=== PATIENT | female | born 2000 | race Two or more races ===

== ENCOUNTER 2022-09-03 12:23 | Outpatient (REF) | payer MEDICAID, SELFPAY ==
--- NOTE | ~2022-09-03 | XR_ITS ---
EXAMINATION: XR WRIST, LEFT CLINICAL INFORMATION: Left wrist pain. COMPARISON: None TECHNIQUE: PA, lateral, and oblique views of the left wrist. FINDINGS: The bones and soft tissues are normal. No fracture. Alignment is anatomic with normal joint spaces. No erosions or abnormal soft tissue calcifications. XR/XR wrist LT min 3V IMPRESSION: Normal left wrist.
== END 2022-09-03 12:24 | disposition home or self-care (01) ==
LOC: HO.XRAY 12:23
PROVIDERS: Visit Provider Family Medicine Adult Medicine
DX: M25.532 Pain in left wrist (principal)
CPT/HCPCS: 73110